=== PATIENT | male | born 1955 ===

== ENCOUNTER 2021-05-12 08:15 | Day surgery (SDC) | payer OTHER ==
[~2021-05-12 08:15] MED LIST: COZAAR50 MG PO
[2021-05-12] MEDS ORDERED: PERCOCET 5-3251 EACH PO (14:58)
== END 2021-05-12 17:15 | disposition home or self-care (01) ==
LOC: CIR.AMB 08:15
PROVIDERS: ATTEND Surgery
DX: N52.31 Erectile dysfunction following radical prostatectomy (principal); Z20.822 Contact with and (suspected) exposure to COVID-19
CPT/HCPCS: 54405; C1813

== ENCOUNTER 2022-09-21 09:54 | Inpatient (IN) | payer OTHER ==
[~2022-09-21] VITALS: Ht 167.6 cm; Wt 90.7 kg
[~2022-09-21 09:54] MED LIST changes: +PERCOCET 5-3251 EACH PO
[2022-09-21] MEDS ORDERED: DAPSONE25 MG PO (10:03)
--- NOTE | 2022-09-21 10:06 | NUR ---
SE RECIBE PTE ALERTA Y ORIENTADO X3 EN AMBULANCIA POR TRANSFER [facility] POR DX MEDICO DE COLELITIASIS. PTE REFIERE MOLESTIAS EN EPIGASTRIO. SE STEFAN S/V Y SE UBICA EN RANDY #8
--- NOTE | 2022-09-21 13:52 | NUR ---
SE STEFAN MUESTRAS DE [facility] MEDIA Y BAJO MEDIDAS ASEPTICAS. PTE PENDIENTE A RESULTADOS
[2022-09-23] MEDS ORDERED: SUCRALFATE1 GM (11:26)
== END 2022-09-30 14:26 | disposition home or self-care (01) | DRG 446 ==
LOC: ER 09:54 → SURG 18:06 → SEC-K 18:06 → SURG 09-23 11:08
PROVIDERS: Internal Medicine Gastroenterology; ADMIT Internal Medicine; ATTEND Internal Medicine
PROC: BF37ZZZ Magnetic Resonance Imaging (MRI) of Pancreas (ICD-10-PCS; 2022-09-21)
PROC: 02HV33Z Insertion of Infusion Device into Superior Vena Cava, Percutaneous Approach (ICD-10-PCS; 2022-09-23)
PROC: 30233N1 Transfusion of Nonautologous Red Blood Cells into Peripheral Vein, Percutaneous Approach (ICD-10-PCS; 2022-09-23)
PROC: 0FC98ZZ Extirpation of Matter from Common Bile Duct, Via Natural or Artificial Opening Endoscopic (ICD-10-PCS; principal; 2022-09-28 12:00)
DX: K80.50 Calculus of bile duct without cholangitis or cholecystitis without obstruction (principal); D64.89 Other specified anemias